=== PATIENT | male | born 1985 | race Caucasian/White ===

== ENCOUNTER 2017-08-24 21:28 | Inpatient (IN) | payer BC, OTHER ==
[~2017-08-24 21:28] MED LIST: ISOVUE-370 76%-LOCM 1 ML ONE
[2017-08-24 22:07] LABS: Hematocrit 26.9 % (42.0-52.0); Mean Platelet Volume 7.6 fL (7.4-10.4); Red Blood Cell (RBC) Count 3.05 mill/uL (4.70-6.10); White Blood Cell (WBC) Count 8.9 thou/uL (4.8-10.8)
[2017-08-24 22:21] LABS: Anion Gap 20 mmol/L (10-20); BUN (Urea Nitrogen) 18 mg/dL (8.9-20.6); Calc. Creatinine Clearance 0 mL/min (70-130); Calcium 9.3 mg/dL (7.8-10.44); Carbon Dioxide 20 mmol/L (22-29); Chloride 105 mmol/L (98-107); Estimated GFR-MDRD 55
[2017-08-24 22:23] LABS: Band 3 % (5-11); Neutrophil 69 % (42-75)
[2017-08-24 22:27] LABS: Troponin I 0.012 ng/mL (< 0.028)
--- NOTE | 2017-08-24 22:54 | CT ---
CT ANGIO CHEST WITH CONTRAST: History: Dyspnea. On chemotherapy. Leukemia. Comparison: None. FINDINGS: CT angiogram of the chest was performed after the intravenous administration of contrast. 3D renderin g provided. There is a small pericardial effusion. Phase of contrast limits evaluation for distal pulmonary embol i. No proximal segmental pulmonary arterial filling defect is present. Thyroid is unremarkable. There are abnormal airspace opacities throughout the right middle lobe, righ t lower lobe, and left lower lobe with subpleural sparing. Upper abdomen is unremarkable. The adrenal glands, pancreas, and spleen are unremarkable as well as the liver. The skeleton is unremarkable. There is a radiopacity adjacent to the right humeral head uncertain in nature. IMPRESSION: 1. No proximal segmental pulmonary arterial filling defect. 2. Multifocal lower lobe pneumonia. 3. Small to moderate sized pericardial effusion. POS: [facility]
[2017-08-24 23:43] LABS: Lactic Acid - Sepsis 2.9 mmol/L (0.5-2.2)
[2017-08-24] MEDS ORDERED: Piperacillin/Tazobactam 3.375 GM in Sodium Chloride 0.9% 100 ML IVPB SCH (23:45)
[2017-08-25] MEDS ORDERED: Ondansetron HCl/PF 4 MG/2 ML Vial IVP PRN (02:15)
[2017-08-25] MEDS ORDERED: Ondansetron ODT 4 MG TAB SL PRN (02:15)
[2017-08-25] MEDS ORDERED: Acetaminophen 325 MG TAB PO PRN (02:15)
[2017-08-25] MEDS ORDERED: Sodium Chloride 0.9% 1,000 ML IV SCH (02:15)
[2017-08-25] MEDS ORDERED: VANCOMYCIN IVPB PRN (02:51)
[2017-08-25 03:07] LABS: Hematocrit 24.9 % (42.0-52.0); Mean Platelet Volume 7.5 fL (7.4-10.4); Red Blood Cell (RBC) Count 2.81 mill/uL (4.70-6.10)
[2017-08-25 03:30] LABS: ALT (SGPT) 51 U/L (8-55); AST (SGOT) 45 U/L (5-34); Alkaline Phosphatase 59 U/L (40-150); Anion Gap 13 mmol/L (10-20); BUN (Urea Nitrogen) 15 mg/dL (8.9-20.6); Bilirubin, Total 0.4 mg/dL (0.2-1.2); Calc. Creatinine Clearance 115 mL/min (70-130); Calcium 8.8 mg/dL (7.8-10.44); Carbon Dioxide 24 mmol/L (22-29); Chloride 107 mmol/L (98-107); Estimated GFR-MDRD 63; Protein, Total 5.6 g/dL (6.0-8.3)
[2017-08-25 03:39] LABS: Band 7 % (5-11); Myelocyte 1 % (0-0); Neutrophil 58 % (42-75)
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
[2017-08-25] MEDS: Piperacillin/Tazobactam 3.375 GM in Sodium Chloride 0.9% 100 ML IVPB SCH ×3 (06:01→18:26)
[2017-08-25] MEDS ORDERED: RUXOLITINIB PHOSPHATE PO SCH ×2 (09:00)
[2017-08-25] MEDS ORDERED: POSACONAZOLE PO SCH (09:00)
[2017-08-25] MEDS ORDERED: MAGNESIUM AMINO ACID CHELATE PO SCH (09:00)
[2017-08-25] MEDS ORDERED: VALACYCLOVIR HCL PO SCH (09:00)
[2017-08-25] MEDS ORDERED: Potassium Chloride 20 MEQ TAB PO SCH (09:00)
[2017-08-25] MEDS ORDERED: PANTOPRAZOLE SODIUM PO SCH (09:00)
[2017-08-25] MEDS ORDERED: POTASSIUM CHLORIDE PO SCH (09:00)
[2017-08-25] MEDS: Vancomycin HCl 1.5 GM in Sodium Chloride 0.9% 250 ML 300 ML IVPB SCH ×2 (09:43→20:46)
[2017-08-25] MEDS: Pregabalin 75 MG CAP PO SCH ×2 (09:45→20:44)
[2017-08-25] MEDS ORDERED: Lidocaine 1% (PF) 30 ML VIAL ONE ×2 (10:29→10:37)
[2017-08-25] MEDS ORDERED: Fentanyl 100 MCG/2 ML VIAL ONE ×2 (10:37→11:34)
[2017-08-25] MEDS ORDERED: Midazolam HCl 2 mg/2 ml Vial ONE ×2 (10:37→11:34)
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
[2017-08-25 12:58] LABS: BF Reference Range Comment Note:
[2017-08-25] MEDS ORDERED: Vancomycin HCl 1 GM in Premix Bag 1 BAG IVPB SCH (13:00)
[2017-08-25 13:53] LABS: BF Color Pink
[2017-08-25 13:54] LABS: RBC Count-Automated 193000 /cumm
[2017-08-25 13:56] LABS: BF WBC/Nonhematics Ct. - Manua 90 /cumm
[2017-08-25] MEDS: Potassium Chloride 20 MEQ TAB PO SCH ×2 (14:42→17:14)
[2017-08-25 14:52] LABS: Number Cells Counted-Fluids 100
--- NOTE | 2017-08-25 15:10 | OP ---
DATE OF SERVICE: 08/25/2017 SERVICE: Pulmonary Medicine. PROCEDURES: Fiberoptic bronchoscopy with; 1. Visual airway inspection. 2. Endobronchial brush of the right lower lobe. 3. Bronchioalveolar lavage of the right lower lobe. 4. Transbronchial biopsies of right lower lobe. CONSCIOUS SEDATION: Administered by the physician PREPROCEDURE DIAGNOSES: 1. Immunocompromised state. 2. Pulmonary infiltrate. POSTPROCEDURE DIAGNOSES: 1. Immunocompromised state. 2. Pulmonary infiltrate. PROCEDURE PRODUCTION MINER: Rex Akins M.D. MEDICATIONS USED: 1. Versed 4 mg IV push. 2. Fentanyl 100 mcg IV push. 3. Topical Lidocaine, 1% without epinephrine, total quantity 18 mL. PREANESTHESIA ASSESSMENT: H&P had been performed. The patient's medications and allergies were reviewed. Informed consent was obtained after discussing risks, benefits, and rationale for performing the procedure as well as alternative options. DESCRIPTION OF PROCEDURE: A timeout was performed, identifying the correct procedure and the patient with name and date of . Topical anesthesia was applied to the nose and posterior oropharynx. A diagnostic fiberoptic bronchoscope was introduced through the right naris. The vocal cords were visualized and 1% lidocaine was topically sprayed on the cords. The bronchoscope was advanced into the trachea were additional aliquots of lidocaine were applied. A tracheobronchial tree inspection was carried out with clear identification of the right upper lobe, right middle lobe, right lower lobe, left upper lobe, lingula, and left lower lobe. Anatomy was normal to the segmental level. The bronchioalveolar lavage was obtained from the right lower lobe. Endobronchial brushings and transbronchial biopsies were subsequently obtained under fluoroscopic guidance. Hemostasis was verified and bronchoscope was subsequently removed from the patient. Post-procedure fluoroscopy did not demonstrate any pneumothorax. FINDINGS: 1. Vocal cords were normal in motility in appearance. 2. No discrete endobronchial disease was identified though the mucosa was diffusely friable. 3. Secretions were minimal, but slightly tenacious. Whatever was present was perfectly clear. SPECIMENS OBTAINED: 1. Pathology on BAL, brushings, and transbronchial biopsies. 2. Extended microbiology for immunocompromised host on BAL fluid. COMPLICATIONS: None. ESTIMATED BLOOD LOSS: 1 mL. FLUOROSCOPY TIME: Less than 2 midnights. DISPOSITION: The patient will return to his medical unit after he meets criteria in the postanesthesia care unit. [facility]
[2017-08-25] MEDS: MAGNESIUM AMINO ACID CHELATE PO SCH ×2 (17:18→20:45)
[2017-08-25] MEDS: POSACONAZOLE 100 MG PO SCH (17:19)
[2017-08-25] MEDS: Acetaminophen 325 MG TAB PO PRN (20:44)
[2017-08-26] MEDS: Piperacillin/Tazobactam 3.375 GM in Sodium Chloride 0.9% 100 ML IVPB SCH ×5 (00:34→23:49)
[2017-08-26] MEDS: Acetaminophen 325 MG TAB PO PRN (04:55)
[2017-08-26 05:22] LABS: %Eosinophils 0.5 % (0.0-10.0); %Lymphocytes 15.9 % (21.0-51.0); Hematocrit 23.3 % (42.0-52.0); Mean Platelet Volume 7.9 fL (7.4-10.4); Red Blood Cell (RBC) Count 2.63 mill/uL (4.70-6.10); White Blood Cell (WBC) Count 5.9 thou/uL (4.8-10.8)
[2017-08-26 05:23] LABS: #Lymphocytes 0.9 thou/uL (1.20-3.40); #Monocytes 0.8 thou/uL (0.11-0.59); #Neutrophils 4.1 thou/uL (1.40-6.50); %Basophils 0.2 % (0.0-1.0)
[2017-08-26 05:26] LABS: ALT (SGPT) 46 U/L (8-55); AST (SGOT) 45 U/L (5-34); Alkaline Phosphatase 59 U/L (40-150); Anion Gap 11 mmol/L (10-20); BUN (Urea Nitrogen) 12 mg/dL (8.9-20.6); Bilirubin, Total 0.3 mg/dL (0.2-1.2); Calc. Creatinine Clearance 155 mL/min (70-130); Calcium 8.3 mg/dL (7.8-10.44); Carbon Dioxide 23 mmol/L (22-29); Chloride 111 mmol/L (98-107); Estimated GFR-MDRD 89; Globulin 2.3 g/dL (2.4-3.5); Protein, Total 5.4 g/dL (6.0-8.3)
--- NOTE | 2017-08-26 06:51 | PDOC.FM ---
- Subjective Subjective: Fevered to 101.5F overnight. Denied shortness of breath this morning or overnight. No complaints this morning. - Objective MAR Reviewed: Yes Vital Signs & Weight: Vital Signs (12 hours) Temp Pulse Resp BP BP Pulse Ox 08/26/17 04:55 95 08/26/17 04:00 100.5 F H 102 H 18 108/50 L 95 08/26/17 00:35 92 L 08/26/17 00:00 99.6 F 103 H 20 110/51 L 92 L 08/25/17 20:40 101.5 F H 117 H 20 92 L 08/25/17 19:30 101.5 F H 117 H 20 110/56 L 92 L I&O: 08/24/17 08/25/17 08/26/17 06:59 06:59 06:59 Intake Total 1477 Output Total 375 Balance 1102 Result Diagrams: 08/26/17 04:58 08/26/17 04:58 Phys Exam - Physical Examination Constitutional: NAD HEENT: PERRLA, moist MMs Respiratory: no wheezing crackles in the right lung base Cardiovascular: RRR, no significant murmur Gastrointestinal: soft, non-tender, no distention, positive bowel sounds Musculoskeletal: edema present (bilateral lower extremities nonpitting to mid read) Neurological: non-focal Psychiatric: normal affect, A&O x 3 Dx/Plan (1) Sepsis due to pneumonia Code(s): J18.9 - PNEUMONIA, UNSPECIFIED ORGANISM; A41.9 - SEPSIS, UNSPECIFIED ORGANISM Status: Acute (2) Community acquired pneumonia Code(s): J18.9 - PNEUMONIA, UNSPECIFIED ORGANISM Status: Acute (3) LY (acute kidney injury) Code(s): N17.9 - ACUTE KIDNEY FAILURE, UNSPECIFIED Status: Acute (4) Lactic acidosis Code(s): E87.2 - ACIDOSIS Status: Acute (5) Peripheral edema Code(s): R60.9 - EDEMA, UNSPECIFIED Status: Acute (6) Hx of bone marrow transplant Code(s): Z94.81 - BONE MARROW TRANSPLANT STATUS Status: Acute (7) AML (acute myeloid leukemia) in remission Code(s): C92.01 - ACUTE MYELOBLASTIC LEUKEMIA, IN REMISSION Status: Acute (8) Immunosuppressed due to chemotherapy Code(s): Z79.899 - OTHER SKILLED NURSING (CURRENT) DRUG THERAPY Status: Acute (9) HTN (hypertension) Code(s): I10 - ESSENTIAL (PRIMARY) HYPERTENSION Status: Acute (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 1.)Sepsis 2/2 Multifocal pneumonia in an immunosuppressed pt- -Febrile, tachycardic CTA of thorax-negative for pulmonary embolus, positive for right middle and lower lobe and left lower lobe pna; Dr. Cain, pt's oncologist notified ([phone] or [email or web address]). Repeat CXR this am showed persistent right multifocal density Dr. Akins consulted; pt is s/p BAL, pending results, gram stain showed few wbc 's and no bacteria; respiratory culture is growing staphylococcus, no species listed yet Dr. Vlaerio consulted d/t pericardial effusion noted on CTA thorax; echo showed a mild effusion without s/s of tamponade. No intervention at this time. Pt is on Vanc and Zosyn empirically; Pt's bactrim was continued for PCP prophylaxis; Pt's Levaquin was restarted at a higher dose for dual antipsuedomonal coverage. All other meds per Dr. Cain were continued hx of funal pneumonia, pt is on posiconazole 2.)Peripheral edema 2/2 medication side effect- Pt is on amlodipine and nexavar, both of which can cause peripheral edema. Dr. Cain is aware of edema. Pt's amlodipine was held because of low normal blood pressures overnight. 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 Nexaval was discontinued 3 weeks ago and pt states his symptoms have resolved from the graft vs host disease after stopping this medicine. 5.)LY, resolved Continued lasix but will monitor renal function 6.)Lactic Acidosis, resolved 7.)HTN, controlled -held amlodipine this morning -Will monitor swelling.
[2017-08-26] MEDS ORDERED: predniSONE 20 MG TAB PO SCH ×2 (08:00→10:30)
[2017-08-26 08:41] LABS: Vancomycin, Trough 13.6 ug/mL
[2017-08-26] MEDS ORDERED: Albuterol Sulfate 2.5 mg/3 ml Neb NEB PRN (08:59)
[2017-08-26] MEDS ORDERED: predniSONE 5 MG TAB PO SCH (09:00)
[2017-08-26] MEDS ORDERED: Amlodipine 10 MG TAB PO SCH (09:00)
[2017-08-26] MEDS ORDERED: Sulfameth/Trimethoprim DS 800-160mg TAB PO SCH (09:00)
[2017-08-26] MEDS: Sulfameth/Trimethoprim DS 800-160mg TAB PO SCH (10:07)
[2017-08-26] MEDS: Potassium Chloride 20 MEQ TAB PO SCH (10:07)
[2017-08-26] MEDS: Pregabalin 75 MG CAP PO SCH ×2 (10:09→21:35)
[2017-08-26] MEDS: MAGNESIUM AMINO ACID CHELATE PO SCH ×2 (10:14→21:37)
[2017-08-26] MEDS: POSACONAZOLE 100 MG PO SCH ×2 (10:15→21:38)
--- NOTE | 2017-08-26 10:24 | RAD ---
PORTABLE CHEST: History: Sepsis. Comparison: 08-24-17 CT. FINDINGS: Heart size is borderline. The lungs show some minimal persist parenchymal change in the right lower l obe. Left lung appears clear but some of the minimal retrocardiac density seen on CT would be obscure d on a portable film. IMPRESSION: Minimal persistent infiltrate in the right lung base. POS: [facility]
[2017-08-26] MEDS: Vancomycin HCl 1.5 GM in Sodium Chloride 0.9% 250 ML 300 ML IVPB SCH ×3 (12:28→21:42)
[2017-08-26] MEDS ORDERED: Chlorhexidine Gluconate 15 ML UDCUP SSP PRN (13:23)
--- NOTE | 2017-08-26 13:29 | ADD-PRG ---
DATE OF SERVICE: 08/26/2017 Please add as an addendum to the note of Dr. Honey Ziegler Mr. Headley is resting quietly this morning in no distress. He was admitted with pneumonia. He is cu rrently on broad-spectrum antibiotics due to immunosuppression. 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 He is still running fever to 101.5. He has been evaluated also by Zafar Akins, who performed bronchoscopy with further studies pending. In the event, clinically he is in no distress and we will await result of bronchoscopy to expand our coverage if necessary.
--- NOTE | 2017-08-26 17:18 | PRG ---
DATE OF SERVICE: 08/26/2017 SERVICE: Pulmonary Medicine. INTERVAL HISTORY: The patient is breathing comfortably this morning. Yesterday evening, he felt nadia sy. He is coughing up increasing sputum. This was cleared. He did not have any significant hemopty sis. He had a low grade fever overnight. This morning, however, he is feeling much improved. He jimenez s no specific complaints of nausea, vomiting, or diarrhea. Otherwise, there has been no interval terry nges condition. We are waiting multiple laboratories come back from the bronchoscopy. PHYSICAL EXAMINATION: VITAL SIGNS: Afebrile, pulse 100, blood pressure 112/53, respirations 14, saturation 95% on room air . GENERAL: Patient is awake, alert, in no apparent distress. LUNGS: Excellent air entry. Dependent crackles with minimal. HEART: Normal rate, regular. ABDOMEN: Soft, nontender, nondistended. Bowel sounds positive. MUSCULOSKELETAL: No cyanosis or clubbing. There is 3+ pitting in the bilateral lower extremities. NEUROLOGIC: Grossly nonfocal. LABORATORY DATA: WBC 5.9, hemoglobin 7.9, platelets 201,000. Basic metabolic profile and liver func tion studies are unremarkable. Neutrophil count is 13% in the BAL fluid. Lymphocyte count is only 1 8%. Multiple special studies are currently pending. Respiratory culture is growing Staph species. This may be a contaminant from the nose. Acid fast bacilli and influenza are unremarkable. Blood cu ltures x2 are unremarkable. IMAGING: Chest x-ray demonstrates interval improvement in the infiltrate in the right lower lobe. C ytology demonstrates no malignancy. Benign respiratory epithelial cells are identified with rare aty pical cells, which likely represent degenerative atypia. Transbronchial biopsies demonstrate benign lung tissue with focal reactive changes and no evidence of fibrosis, granulomas or malignancies. ASSESSMENT: 1. Acute hypoxic respiratory failure. 2. Pulmonary infiltrate. 3. Immunocompromised state. 4. Obstructive sleep apnea, suspected. 5. Sepsis, improving. PLAN: We will await the results of the studies. I will send a urinalysis off to make certain he green s not have significant proteinuria. If positive, the nephrotic range proteinuria could cause his vol ume overload state. Pulmonary Critical Care will continue to follow up for the time being.
[2017-08-26 19:01] LABS: Bilirubin Negative (Negative); Blood, Urine Negative (Negative); Glucose, Urine (Dipstick) >=1000 mg/dL (Negative); Ketone, Urine Trace mg/dL (Negative); Nitrite Negative (Negative); Protein, Urine (Dipstick) Negative (Neg-Trace); Urobilinogen 0.2 mg/dL (0.2-1.0)
[2017-08-26 19:17] LABS: LegU Control Bar Appear? YES (CONTROL BAR); LegionellaU Control Bkground? CLEAR/WHITE (CLR/WHITE); Strp pneuU Control Background? CLEAR/WHITE (CLR/WHITE); Strp pneumo Control Bar Appear YES (CONTROL BAR)
[2017-08-26] MEDS ORDERED: Furosemide 20 MG TAB PO SCH (21:00)
[2017-08-26] MEDS: Ruxolitinib Phosphate [Jakafi] 10 MG PO SCH (21:41)
[2017-08-27 05:06] LABS: ALT (SGPT) 43 U/L (8-55); AST (SGOT) 40 U/L (5-34); Alkaline Phosphatase 60 U/L (40-150); Anion Gap 11 mmol/L (10-20); BUN (Urea Nitrogen) 11 mg/dL (8.9-20.6); Bilirubin, Total 0.3 mg/dL (0.2-1.2); Calc. Creatinine Clearance 152 mL/min (70-130); Calcium 8.5 mg/dL (7.8-10.44); Carbon Dioxide 23 mmol/L (22-29); Chloride 110 mmol/L (98-107); Estimated GFR-MDRD 87; Globulin 2.1 g/dL (2.4-3.5); Protein, Total 5.4 g/dL (6.0-8.3)
[2017-08-27 05:40] LABS: Anisocytosis SLIGHT = 6-15 cells (100X) (0-5/hpf); Band 1 % (5-11); Hematocrit 22.7 % (42.0-52.0); Mean Platelet Volume 7.7 fL (7.4-10.4); Neutrophil 77 % (42-75); Red Blood Cell (RBC) Count 2.53 mill/uL (4.70-6.10); Schistocytes SLIGHT = 2-5 cells (100X) (0-1/hpf)
[2017-08-27] MEDS: Ruxolitinib Phosphate [Jakafi] 10 MG PO SCH (06:12)
[2017-08-27] MEDS: Piperacillin/Tazobactam 3.375 GM in Sodium Chloride 0.9% 100 ML IVPB SCH ×4 (06:12→23:57)
--- NOTE | 2017-08-27 06:48 | PDOC.FM ---
- Objective Vital Signs & Weight: Vital Signs (12 hours) Temp Pulse Resp BP Pulse Ox 08/27/17 04:00 98.0 F 103 H 20 96/48 L 91 L 08/26/17 23:05 107 H 18 93 L 08/26/17 20:00 98.7 F 107 H 18 110/54 L 93 L 08/26/17 18:48 110 H 18 95 I&O: 08/25/17 08/26/17 08/27/17 06:59 06:59 06:59 Intake Total 1477 1250 Output Total 375 600 Balance 1102 650 Result Diagrams: 08/27/17 04:21 08/27/17 04:21 Dx/Plan (1) Sepsis due to pneumonia Code(s): J18.9 - PNEUMONIA, UNSPECIFIED ORGANISM; A41.9 - SEPSIS, UNSPECIFIED ORGANISM Status: Acute (2) Community acquired pneumonia Code(s): J18.9 - PNEUMONIA, UNSPECIFIED ORGANISM Status: Acute (3) LY (acute kidney injury) Code(s): N17.9 - ACUTE KIDNEY FAILURE, UNSPECIFIED Status: Acute (4) Lactic acidosis Code(s): E87.2 - ACIDOSIS Status: Acute (5) Peripheral edema Code(s): R60.9 - EDEMA, UNSPECIFIED Status: Acute (6) Hx of bone marrow transplant Code(s): Z94.81 - BONE MARROW TRANSPLANT STATUS Status: Acute (7) AML (acute myeloid leukemia) in remission Code(s): C92.01 - ACUTE MYELOBLASTIC LEUKEMIA, IN REMISSION Status: Acute (8) Immunosuppressed due to chemotherapy Code(s): Z79.899 - OTHER AIRPORT PLANNER (CURRENT) DRUG THERAPY Status: Acute (9) HTN (hypertension) Code(s): I10 - ESSENTIAL (PRIMARY) HYPERTENSION Status: Acute (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
--- NOTE | 2017-08-27 06:52 | PDOC.FM ---
- Subjective Subjective: Afebrile overnight. Hypotensive this morning with tachycardia to the 110s. Complains of mild shortness of breath on RA and persistent lower extremity leg swelling. - Objective MAR Reviewed: Yes Vital Signs & Weight: Vital Signs (12 hours) Temp Pulse Resp BP Pulse Ox 08/27/17 04:00 98.0 F 103 H 20 96/48 L 91 L 08/26/17 23:05 107 H 18 93 L 08/26/17 20:00 98.7 F 107 H 18 110/54 L 93 L I&O: 08/25/17 08/26/17 08/27/17 06:59 06:59 06:59 Intake Total 1477 1250 Output Total 375 600 Balance 1102 650 Result Diagrams: 08/27/17 04:21 08/27/17 04:21 Phys Exam - Physical Examination Constitutional: NAD HEENT: PERRLA, moist MMs Neck: no nodes, no JVD, supple Respiratory: no wheezing, no rales, no rhonchi, clear to auscultation bilateral Cardiovascular: no significant murmur, no rub tachycardia Gastrointestinal: soft, non-tender, no distention, positive bowel sounds bilateral lower extremity shawna to the knee Neurological: non-focal Psychiatric: normal affect, A&O x 3 Skin: no rash Dx/Plan (1) Sepsis due to pneumonia Code(s): J18.9 - PNEUMONIA, UNSPECIFIED ORGANISM; A41.9 - SEPSIS, UNSPECIFIED ORGANISM Status: Acute (2) Community acquired pneumonia Code(s): J18.9 - PNEUMONIA, UNSPECIFIED ORGANISM Status: Acute (3) LY (acute kidney injury) Code(s): N17.9 - ACUTE KIDNEY FAILURE, UNSPECIFIED Status: Resolved (4) Lactic acidosis Code(s): E87.2 - ACIDOSIS Status: Resolved (5) Peripheral edema Code(s): R60.9 - EDEMA, UNSPECIFIED Status: Chronic (6) Hx of bone marrow transplant Code(s): Z94.81 - BONE MARROW TRANSPLANT STATUS Status: Chronic (7) AML (acute myeloid leukemia) in remission Code(s): C92.01 - ACUTE MYELOBLASTIC LEUKEMIA, IN REMISSION Status: Chronic (8) Immunosuppressed due to chemotherapy Code(s): Z79.899 - OTHER DETENTION (CURRENT) DRUG THERAPY Status: Chronic (9) HTN (hypertension) Code(s): I10 - ESSENTIAL (PRIMARY) HYPERTENSION Status: Chronic (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 1.)Sepsis 2/2 Multifocal pneumonia in an immunosuppressed pt, with hypotension and tachycardia, concern for septic shock this AM -hypotensive, tachycardic -Provided pt with a 500ml bolus of NS and maintenence NS @ 140cc/hr -Some concern this morning for tamponade based on hypotension and worsening tachycardia. A repeat EKG and CXR were ordered. Pending read. However Pt does not have JVD. Pt's hypotension was corrected with a 500ml bolus of fluids. Will continue to monitor. Antibiotic coverage: Pt is on Vanc and Zosyn empirically; Pt's bactrim was continued for PCP prophylaxis; Pt's Levaquin was restarted at a higher dose for dual antipsuedomonal coverage. hx of funal pneumonia, pt is on posiconazole 300mg daily Will consult ID for recommendations on management with antibiotics/antifungals. Additional tests: RVP ordered, pending; Flu negative urine antigen Legionella and urine strep pneumo negative. CTA of thorax-negative for pulmonary embolus, positive for right middle and lower lobe and left lower lobe pna; Dr. Cain, pt's oncologist notified ([phone] or [email or web address]). Pulm: Dr. Akins consulted; pt is s/p BAL, pending results, gram stain showed few wbc 's and no bacteria; respiratory culture is growing staphylococcus, no species listed yet Cards: Dr. Valerio consulted d/t pericardial effusion noted on CTA thorax; echo showed a mild effusion without s/s of tamponade at that time. See above. 2.)Anemia: downtrending H and H. Pt without bloody stools. States his H/H downtrends while on the Jakafi. Decreased the Jakafi dosing per Dr. Cain. Will order an FOBT. 3.)Hypotension, tachycardia, no JVD Repeat EKG and CXR with concern for Cardiac tamponade Provided a 500ml bolus of NS and started pt on maintenance fluids at 140cc/hr of NS 2.)Peripheral edema 2/2 medication side effect- Pt thinks this is due to the Jakafi. Amlodipine has been held as pt has been hypotensive. 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 Pt's Levaquin was increased to 750mg daily. Nexaval was discontinued 3 weeks ago and pt states his symptoms have resolved from the graft vs host disease after stopping this medicine. 5.)LY, resolved held lasix due to hypotension. But will monitor renal function. 6.)Lactic Acidosis, resolved 7.)HTN, controlled -held amlodipine this morning -Will monitor swelling.
[2017-08-27 07:42] LABS: Hemoglobin A1c 4.7 % (4.0-6.0)
[2017-08-27 08:09] LABS: Vancomycin, Trough 16.6 ug/mL
[2017-08-27] MEDS: Sodium Chloride 0.9% 1,000 ML IV SCH ×4 (08:25→20:59)
[2017-08-27] MEDS: Pregabalin 75 MG CAP PO SCH ×2 (10:16→20:13)
[2017-08-27] MEDS: predniSONE 20 MG TAB PO SCH (10:17)
[2017-08-27] MEDS: Sulfameth/Trimethoprim DS 800-160mg TAB PO SCH (10:17)
[2017-08-27] MEDS: Potassium Chloride 20 MEQ TAB PO SCH (10:17)
[2017-08-27] MEDS: Vancomycin HCl 1.5 GM in Sodium Chloride 0.9% 250 ML 300 ML IVPB SCH ×2 (10:20→20:13)
[2017-08-27] MEDS: MAGNESIUM AMINO ACID CHELATE PO SCH (10:21)
[2017-08-27] MEDS: POSACONAZOLE 100 MG PO SCH (10:23)
[2017-08-27] MEDS: Furosemide 20 MG TAB PO SCH ×2 (10:33→14:22)
[2017-08-27 12:23] LABS: Magnesium 2.3 mg/dL (1.6-2.6); Phosphorus 4.9 mg/dL (2.3-4.7)
[2017-08-27 13:07] LABS: Fibrinogen 478 mg/dL (253-463)
[2017-08-27 13:08] LABS: Prothrombin Time 14.4 SEC (12.0-14.7)
--- NOTE | 2017-08-27 13:44 | RAD ---
CHEST 2 VIEWS: Date: 08/27/17 HISTORY: Pneumonia. Pericardial effusion. COMPARISON: None. FINDINGS: Normal cardiac silhouette. Pulmonary vessels and hilum are normal. No masses or consolidation. No pne umothorax. No osseous abnormalities. IMPRESSION: No acute cardiopulmonary process. POS: [facility]
--- NOTE | 2017-08-27 15:04 | ADD-PRG ---
DATE OF SERVICE: 08/27/2017 This is an addendum to the note of Dr. Honey Ziegler. Mr. Headley looks and feels better this morning. He did have an episode of hypotension which; however , responded very well to 500 mL bolus of normal saline. His blood pressure is currently 124/74. He still has some mild shortness of breath, but this is less so than previously and he is without a coug h. We are still awaiting multiple bronchial washings and biopsies as well as cultures and stains fro m Dr. Akins's bronchoscopy. Given Mr. Headely's immunocompromised state with a significant pneumoni a which however, he is improving, we will ask for input also from Infectious Disease, Dr. Crisostomo.
[2017-08-27] MEDS ORDERED: Enoxaparin Sodium 40 MG/0.4 ML SYRINGE SC SCH (15:45)
[2017-08-27] MEDS ORDERED: ISOVUE-370 76%-LOCM 1 ML ONE (15:53)
--- NOTE | 2017-08-27 17:03 | CT ---
CT ARTERIOGRAM CHEST WITH IV CONTRAST AND 3D MIP IMAGING: Date: 08/27/17 HISTORY: Tachycardia. Dyspnea. Chest pain. COMPARISON: 08/24/17. FINDINGS: There is good contrast opacification of the central pulmonary arteries and the thoracic aorta with jacob vine origin of the great vessels. Multifocal pneumonitis is similar in appearance to the previous exa m. Small amount of bilateral pleural fluid is now apparent with slight interval increase in pericardi al fluid. No evidence of pneumothorax. IMPRESSION: 1. No CT evidence of pulmonary embolus. 2. Interval development of small amount of bilateral pleural fluid with slight interval increase in pericardial fluid. Patchy bilateral pneumonitis is otherwise stable. POS: [facility]
[2017-08-27] MEDS ORDERED: Furosemide 40 MG TAB PO SCH (19:15)
[2017-08-27] MEDS ORDERED: Potassium Chloride 20 MEQ TAB PO SCH (19:15)
--- NOTE | 2017-08-27 20:59 | PRG ---
DATE OF SERVICE: 08/27/2017 SERVICE: Pulmonary Medicine. INTERVAL HISTORY: The patient is doing fine from cardiovascular and respiratory standpoint. This mo rning, he was essentially feeling the same. He had slightly increased tachycardia. He also had may inal blood pressures because of aggressive diuretics. He subsequently went for repeat CTA of the [address]. There is really not much of an interval change, although he now has bilateral pleural effusions, which are quite small. He denies any current nausea, vomiting. His cough is improving. His shortn ess of breath when he gets around is slightly better, but roughly stable. PHYSICAL EXAMINATION: VITAL SIGNS: Afebrile, pulse 105, blood pressure 109/50, respirations 16, saturation 97% on room air . GENERAL: Patient is awake, alert, no apparent distress. LUNGS: Decreased air entry. Crackles are present. There are some rhonchi on the right, but they cl ear with cough. HEART: Normal rate, regular. ABDOMEN: Soft, nontender, nondistended. Bowel sounds positive. MUSCULOSKELETAL: No cyanosis or clubbing. There are 2-3+ pitting in the bilateral lower extremities . NEUROLOGIC: Grossly nonfocal. LABORATORY DATA: WBC 4.0, hemoglobin 7.3, platelets 198,000. D-dimer 3.25. INR 1.1. Basic metabol ic profile is unremarkable except for potassium of 3.4 which has already been replaced. Magnesium an d phosphorus are unremarkable. Liver function studies are nearly normal. The BAL has predominantly macrophages. There are a couple neutrophils and lymphocytes there as well. There is lot of red bloo d cells there, but this is likely secondary to his friable mucosa. He does not have an alveolar hemo rrhage syndrome. Betaglycan was negative. HSV 1 and 2 was negative. Cytomegalovirus PCR was negati ve. One additional study is currently pending. Respiratory viral PCR from the BAL fluid was unremar kable. Tomas De Castro analysis, blood cultures x4 negative. Blood cultures from the bronchial washing are alicia wing coag negative staph. IMAGING: CTA of the chest demonstrates no evidence of pulmonary embolism. He has a small pleural ef fusion which is bilateral. He also has changes consistent with minimal pneumonitis, which are stable . There has been interval increase in the size of pericardial fluid. Chest x-ray demonstrates no ac hoopa cardiopulmonary abnormality. ASSESSMENT: 1. Acute hypoxic respiratory failure. 2. Pulmonary infiltrate. 3. Immunocompromised state. 4. Obstructive sleep apnea, suspected. 5. Sepsis, resolving. PLAN: The pericardial effusion is getting larger. If his respiratory issues get worse and not kellen r, he may need a repeat ultrasound of the heart to make certain he is not developing tamponade physio logy. IV fluids have been interrupted. We can continue to diurese him as much as is tolerated. I w ill follow up the results of these cultures. There is a possibility that we are not dealing with an infectious etiology here, but that is a diagnosis of exclusion at this point. I appreciate Dr. Crisostomo ' input.
--- NOTE | 2017-08-27 23:43 | CON ---
DATE OF CONSULTATION: 08/27/2017 REASON FOR CONSULTATION: Pulmonary infiltrates in a setting of post-stem cell transplant and GVHD. 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 Patient has been on the usual prophylaxis for infectious complications including Bactrim, levofloxacin, posaconazole, and Valtrex as well as the kinase inhibitors, ruxolitinib and sorafenib. In addition to that the patient has been taken sirolimus and prednisone for management of the graft versus host disease. 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 When after his shift, he developed fairly rapid onset of severe or progressively worsening dyspnea, which eventually led him to be brought to the emergency room after they found his pulse oximetry in the low range. Patient had no fever or chills. His diarrhea has improved markedly since the GVHD has been better controlled. No vomiting. No headaches, visual symptoms, sore throat, odynophagia, dysphagia, no toothache, no back pain, no abdominal pain, no genitourinary symptoms, no joint symptoms. Since admission he has had a bronchoscopy, the bronchoalveolar lavage results and other results are discussed below. Patient has received broad spectrum coverage with Zosyn, vancomycin, and levofloxacin. He has received furosemide, continued with the other medications noted above. He is feeling better. Since admission, he is still a little bit of dyspnea on effort and other 10-point review of systems as above. PAST MEDICAL HISTORY: Includes acute myelogenous leukemia with a stem cell transplant at [facility]. 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 PAST SURGICAL HISTORY: As above plus hernia operation. ALLERGIES: None. MEDICATIONS: Medications have been listed above. FAMILY HISTORY: Prostate cancer. SOCIAL HISTORY: Never a smoker. 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 PHYSICAL EXAMINATION: GENERAL: Pleasant young man in no acute distress. SKIN: Shows a little bit of erythema in the left retroauricular region, which he ascribes to graft versus host disease. Previous skin rash was localized around the anterior chest, peripheral IV access. No Monreal catheter. No lymphadenopathy. HEENT: Ocular movements are conjugate. Sclerae white. Pupils are equal. Oral cavity normal. NECK: Supple. LUNGS: With symmetric breath sounds with very faint inspiratory crackles left base. HEART: S1, S2, regular rate. No S3 or S4, no murmurs. ABDOMEN: Soft. Not distended or tender. No ascites. No bladder distention or organomegaly. GENITOURINARY: Genital examination normal. EXTREMITIES: No joint inflammatory activity. Patient has 3+ edema in lower extremities. Pulses are 1+ in dorsalis pedis. He is able to move extremities equally. NEUROLOGIC: Cognitive function is perfectly intact. LABORATORY DATA: Thus far, we have initial white cell count, which was 8.9 and now is 4.0, hemoglobin 9.1, down to 7.3; MCV is 89, platelets 320 and 198, 69% neutrophils on arrival and now 77%, lymphocytes are 13 and now 10, eosinophils are 0.5, monocytes 14. INR was 1.1, FTP were abnormal. Sodium 141, potassium 3.3, creatinine 1.31 and 0.9, and glucose 89. Hemoglobin A1c 4.7, calcium 8.8, AST 45 and 40. Other liver profile findings are normal. Albumin 3.6 and 3.3, globulin 2.0. Urinalysis with glycosuria, but otherwise normal. The BAL lavage with 193,000 rbc's per mL and 90 wbc's per mL. Differential shows 13% neutrophils, 18% lymphocytes, the pathology review showed macrophages endothelial cells, histiocytic and mesothelial cells mostly. Vancomycin trough has been normal. Legionella Strep pneumonia was negative and [id number] assay was negative. There are some tests pending including virus PCR panel. Cultures, we have a negative AFB smear and coagulase negative staphylococcus, probably colonizer or contaminant. Influenza A and B negative. IMAGING: The CT scan of the chest showed no evidence of pulmonary embolism, multifocal pneumonitis or pulmonary infiltrates with multifocal nature still noted as previously small effusions. The pathology from the bronchoalveolar lavage specimen showed benign epithelial cells and rare atypical cells and surgical biopsy from the bronchoscopy with benign lung tissues and focal reactive changes. ASSESSMENT: Acute myelogenous leukemia stem cell transplant two years ago in remission with subsequent development of graft versus host disease, which has been managed with immunosuppression. He also has received various kinase inhibitors including ruxolitinib and other kinase inhibitors. Some of them had been associated with some side effects and had been transitioned to different ones. Now, he has developed diffuse pulmonary infiltrates with hypoxemia. DISCUSSION: Differential diagnosis includes the usual infectious causes associated with the immunosuppressed state in this kind of situation. Those appear to have been evaluated properly and there is no evidence of any of them thus far. Patient also had been on adequate prophylaxis for most of those causes. Next possibility would be a noninfectious cause of pulmonary infiltrates and a number of findings of interest including the predominance of red cells in the BAL, which might indicate a low grade diffuse alveolar hemorrhage phenomenon, which can be associated with various underlying processes such as for example low grade graft versus host disease in the lung tissue as well as the possibility of sirolimus induced pulmonary infiltrates. Patient acknowledges that he has been displaying toxic levels of sirolimus in the recent past. If the virus PCR panel was negative, then I would tend to think that he has a noninfectious etiology pulmonary infiltrates and concentrate on the above possibilities among others. YOSID
[2017-08-28 05:10] LABS: #Lymphocytes 0.7 thou/uL (1.20-3.40); #Monocytes 0.6 thou/uL (0.11-0.59); %Basophils 0.3 % (0.0-1.0); %Eosinophils 0.4 % (0.0-10.0); %Lymphocytes 13.4 % (21.0-51.0); %Monocytes 10.8 % (0.0-10.0); Hematocrit 25.9 % (42.0-52.0); Mean Platelet Volume 7.6 fL (7.4-10.4); Red Blood Cell (RBC) Count 2.86 mill/uL (4.70-6.10); White Blood Cell (WBC) Count 5.4 thou/uL (4.8-10.8)
[2017-08-28 05:26] LABS: ALT (SGPT) 48 U/L (8-55); AST (SGOT) 38 U/L (5-34); Alkaline Phosphatase 59 U/L (40-150); Anion Gap 14 mmol/L (10-20); BUN (Urea Nitrogen) 8 mg/dL (8.9-20.6); Bilirubin, Total 0.4 mg/dL (0.2-1.2); Calc. Creatinine Clearance 160 mL/min (70-130); Calcium 9.1 mg/dL (7.8-10.44); Carbon Dioxide 20 mmol/L (22-29); Chloride 112 mmol/L (98-107); Estimated GFR-MDRD 89; Globulin 2.3 g/dL (2.4-3.5)
[2017-08-28] MEDS: Piperacillin/Tazobactam 3.375 GM in Sodium Chloride 0.9% 100 ML IVPB SCH ×4 (06:36→17:32)
[2017-08-28 07:18] LABS: Magnesium 2.2 mg/dL (1.6-2.6); Phosphorus 3.9 mg/dL (2.3-4.7)
[2017-08-28] MEDS: Potassium Chloride 20 MEQ TAB PO SCH (08:42)
[2017-08-28] MEDS: SIROLIMUS PO SCH (08:42)
[2017-08-28] MEDS: Pregabalin 75 MG CAP PO SCH ×2 (08:42→20:56)
[2017-08-28] MEDS: JAKAFI 10 MG PO SCH (08:42)
[2017-08-28] MEDS: predniSONE 20 MG TAB PO SCH (08:43)
[2017-08-28] MEDS: Furosemide 20 MG TAB PO SCH ×2 (08:43→12:57)
[2017-08-28] MEDS: Enoxaparin Sodium 40 MG/0.4 ML SYRINGE SC SCH (08:43)
[2017-08-28] MEDS: POSACONAZOLE 100 MG PO SCH (08:45)
[2017-08-28] MEDS: Sulfameth/Trimethoprim DS 800-160mg TAB PO SCH (08:49)
[2017-08-28] MEDS ORDERED: SIROLIMUS 1 MG/ML PO SCH (09:00)
[2017-08-28] MEDS: Vancomycin HCl 1.5 GM in Sodium Chloride 0.9% 250 ML 300 ML IVPB SCH ×2 (10:24→20:55)
[2017-08-28] MEDS ORDERED: Potassium Chloride 20 MEQ TAB PO SCH (13:45)
--- NOTE | 2017-08-28 13:47 | PDOC.FM ---
- Subjective Subjective: c/o fever blisters today in corners of mouth; VSS; afebrile - Objective Vital Signs & Weight: Vital Signs (12 hours) Temp Pulse Resp BP BP Pulse Ox 08/28/17 11:09 107 H 12 08/28/17 10:55 99.0 F 104 H 16 107/55 L 97 08/28/17 10:00 95 08/28/17 08:35 98.5 F 103 H 16 93 L 08/28/17 08:32 98.5 F 103 H 16 116/58 L 08/28/17 06:56 93 L 08/28/17 06:54 101 H 12 08/28/17 03:47 99.3 F 106 H 18 120/55 L 94 L Weight Weight 104.326 kg I&O: 08/27/17 08/28/17 08/29/17 06:59 06:59 06:59 Intake Total 1250 4470 Output Total 600 1950 Balance 650 2520 Result Diagrams: 08/28/17 04:43 08/28/17 04:42 Phys Exam - Physical Examination Constitutional: NAD HEENT: PERRLA, moist MMs (fever blisters bilaterally) mucosal fever blisters Respiratory: no rales, wheezing present (right lung upper lobe) Cardiovascular: no significant murmur tachycardia Gastrointestinal: soft, non-tender, no distention, positive bowel sounds Musculoskeletal: pulses present, edema present 2+ nonpitting b/l lower extremities Neurological: non-focal, normal sensation Psychiatric: normal affect, A&O x 3 Skin: no rash Dx/Plan (1) Sepsis due to pneumonia Code(s): J18.9 - PNEUMONIA, UNSPECIFIED ORGANISM; A41.9 - SEPSIS, UNSPECIFIED ORGANISM Status: Acute (2) Community acquired pneumonia Code(s): J18.9 - PNEUMONIA, UNSPECIFIED ORGANISM Status: Acute (3) LY (acute kidney injury) Code(s): N17.9 - ACUTE KIDNEY FAILURE, UNSPECIFIED Status: Resolved (4) Lactic acidosis Code(s): E87.2 - ACIDOSIS Status: Resolved (5) Peripheral edema Code(s): R60.9 - EDEMA, UNSPECIFIED Status: Chronic (6) Hx of bone marrow transplant Code(s): Z94.81 - BONE MARROW TRANSPLANT STATUS Status: Chronic (7) AML (acute myeloid leukemia) in remission Code(s): C92.01 - ACUTE MYELOBLASTIC LEUKEMIA, IN REMISSION Status: Chronic (8) Immunosuppressed due to chemotherapy Code(s): 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 hx of funal pneumonia, pt is on posiconazole 300mg daily Will consult ID for recommendations on management with antibiotics/antifungals. Additional tests: RVP ordered, pending; Flu negative urine antigen Legionella and urine strep pneumo negative. 3.)Pericardial effusion, stable -mild increase in size; pending recs from Dr. Valerio -Prior recs stating no intervention needed; will continue to monitor -EKG negative for electrical alternans -CXR was stable from prior -CTA chest was negative for a pulmonary embolus, showed a mild increase in effusion 4.)Anemia, improved H/H improved from day before. Pt without bloody stools. States his H/H downtrends while on the Jakafi. Decreased the Jakafi dosing per Dr. Cain. Will order an FOBT and iron studies. 5.)Hypotension, tachycardia, no JVD Repeat EKG and CXR did not show signs of worsening effusion 6.)Peripheral edema 2/2 medication side effect- Pt thinks this is due to the Jakafi. Amlodipine has been held as pt has been hypotensive. Pt provided with a dose of lasix yesterday. 7.)Hx of AML, s/p BMT Pt takes sacrolimus and jakafi d/t graft vs host disease; see below 8.)Graft Vs Host Disease, controlled, asymptomatic On sacrolimus and Jakafi on prednisone 5mg daily at home; increased to 100mg daily here for stress dosing On daily levaquin 500mg at home and bactrim MWF at home for PCP prophylaxis ( both continued during this hospital stay). Pt's Levaquin was increased to 750mg daily. Nexaval was discontinued 3 weeks ago and pt states his symptoms have resolved from the graft vs host disease after stopping this medicine. 9.)HTN, controlled -held amlodipine this morning -Will monitor swelling. Dispo: Likely transfer to [facility] today or tomorrow.
--- NOTE | 2017-08-28 13:48 | ADD-PRG ---
ADDENDUM To the note of Dr. Honey Ziegler. Mr. Headley is still having a slight drop in his blood pressure and increase in pulse rate. We did di scuss the case with the patient's oncologist and with Dr. Crisostomo. Dr. Crisostomo feels this may be a nonin fectious etiology for pneumonia. He feels that maybe graft versus host or a hypersensitivity pneumon itis related to the numerous medications. Mr. Headley takes his immunosuppressants for his AML and gr aft versus host disease. We will contact [facility] and transfer the patient according to his wishe s. Clinically, he remains stable, awake, alert, albeit with drops in blood pressure overnight.
[2017-08-28 14:59] LABS: Bilirubin, Direct 0.1 mg/dL (0.1-0.3)
[2017-08-28] MEDS: JAKAFI 5 MG PO SCH ×2 (16:31→21:01)
--- NOTE | 2017-08-28 16:33 | PRG ---
DATE OF SERVICE: 08/28/2017 SERVICE: Pulmonary Medicine. INTERVAL HISTORY: The patient is doing really well from a respiratory standpoint. This morning, he had a little heaviness in his chest. He took a nebulized medication and this improved. It typically happens first thing in the morning whenever is waking up, likely reflecting a little orthopnea. Oth erwise, he is making improvements on a day by day basis. He denies any current fevers, chills, nause a or vomiting. He is being looked for transition to [facility] at the beginning of next week. PHYSICAL EXAMINATION: VITAL SIGNS: Afebrile with a T-max of 99.0, pulse 104, blood pressure 107/55, respirations 16 and sa turation 97% on room air. GENERAL: Patient is awake and alert, in no apparent distress. LUNGS: Decent air entry. Dependent crackles are minimal. There are scattered rhonchi that clear wi th cough. HEART: Normal rate, regular resumes Tachycardic. Regular. ABDOMEN: Soft, nontender, nondistended. Bowel sounds positive. MUSCULOSKELETAL: No cyanosis or clubbing. He has got 2+ to 3+ pitting in the bilateral lower extrem ities, but this is actually more limited to the distal leg at this time. GENITOURINARY: No Monreal. LABORATORY DATA: WBC 5.4, hemoglobin 8.0, platelets 266,000 and stable. Creatinine 0.97, potassium 3.3. Iron is low, TIBC is normal. Direct bilirubin is normal. Liver function studies are otherwise unremarkable, essentially. On pathology, non-hematologic cells represented normal mesothelial cells . Vancomycin trough 16.6. All special stains and cultures are negative to date other than coag nega tive Staph growing in the BAL culture, which may represent a contaminant. As I went through the nose . Respiratory virus panel is unremarkable. ASSESSMENT: 1. Acute hypoxic respiratory failure, resolved. 2. Pulmonary infiltrate, small. 3. Immunocompromised state. 4. Obstructive sleep apnea, suspected. 5. Sepsis, resolving. PLAN: We will continue diuresing the patient until he returns to euvolemia. Once he gets out of the hospital, I would like from him to follow up with me in clinic so that we can arrange for him to und ergo a sleep study. Pulmonary will continue to follow while the patient remains in house.
[2017-08-29] MEDS: Piperacillin/Tazobactam 3.375 GM in Sodium Chloride 0.9% 100 ML IVPB SCH ×4 (02:25→20:22)
[2017-08-29 06:18] LABS: ALT (SGPT) 40 U/L (8-55); AST (SGOT) 29 U/L (5-34); Alkaline Phosphatase 56 U/L (40-150); Anion Gap 13 mmol/L (10-20); BUN (Urea Nitrogen) 12 mg/dL (8.9-20.6); Bilirubin, Total 0.3 mg/dL (0.2-1.2); Calc. Creatinine Clearance 154 mL/min (70-130); Calcium 8.9 mg/dL (7.8-10.44); Carbon Dioxide 24 mmol/L (22-29); Chloride 109 mmol/L (98-107); Estimated GFR-MDRD 85; Globulin 2.1 g/dL (2.4-3.5); Protein, Total 5.5 g/dL (6.0-8.3)
[2017-08-29 06:35] LABS: Band 2 % (5-11); Hematocrit 24.4 % (42.0-52.0); Mean Platelet Volume 7.6 fL (7.4-10.4); Neutrophil 57 % (42-75); Reactive Lymphocytes 1 % (0-10); Red Blood Cell (RBC) Count 2.74 mill/uL (4.70-6.10); White Blood Cell (WBC) Count 3.9 thou/uL (4.8-10.8)
--- NOTE | 2017-08-29 06:55 | PDOC.FM ---
- Subjective Subjective: Patient reports mildly improved LE swelling this morning. Also reports skin lesions around lips worsening and tongue swelling overnight. No SOB, no CP. - Objective MAR Reviewed: Yes Vital Signs & Weight: Vital Signs (12 hours) Temp Pulse Resp BP Pulse Ox 08/29/17 04:00 98.1 F 98 20 109/57 L 95 08/28/17 22:56 98 08/28/17 19:35 98.6 F 109 H 16 124/61 95 Weight Weight 104.326 kg I&O: 08/27/17 08/28/17 08/29/17 06:59 06:59 06:59 Intake Total 1250 4470 3365 Output Total 600 1950 3575 Balance 650 2520 -210 Result Diagrams: 08/29/17 05:33 08/29/17 05:33 Phys Exam - Physical Examination Constitutional: NAD HEENT: moist MMs, oral pharynx no lesions no obvious enlargement of tongue honey crusted lesions around oral mucosa Respiratory: no wheezing, no rales, clear to auscultation bilateral Cardiovascular: RRR, no significant murmur Gastrointestinal: soft, non-tender Musculoskeletal: edema present 2+ pitting edema Neurological: moves all 4 limbs Psychiatric: normal affect, A&O x 3 Dx/Plan (1) Community acquired pneumonia Code(s): J18.9 - PNEUMONIA, UNSPECIFIED ORGANISM Status: Acute (2) Sepsis due to pneumonia Code(s): J18.9 - PNEUMONIA, UNSPECIFIED ORGANISM; A41.9 - SEPSIS, UNSPECIFIED ORGANISM Status: Acute (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, history Status: Chronic (4) AML (acute myeloid leukemia) in remission Code(s): C92.01 - ACUTE MYELOBLASTIC LEUKEMIA, IN REMISSION Status: Chronic (5) Graft vs host disease Code(s): D89.813 - BAZAH-EZDXBS-PMMR DISEASE, UNSPECIFIED Status: Chronic (6) HTN (hypertension) Code(s): I10 - ESSENTIAL (PRIMARY) HYPERTENSION Status: Chronic (7) Hx of bone marrow transplant Code(s): Z94.81 - BONE MARROW TRANSPLANT STATUS Status: Chronic (8) Immunosuppressed due to chemotherapy 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 1.)Sepsis, resolved, 2/2 uncertain etiology, possibly infection vs medication side effect relating to sirolimus or jakafi -persistent tachycardia, improved -RR, wbc, and temp all wnl -hypotension resolved -blood cultures negative -Bronch: showed pink fluid, with concern for a hemorhagic process; fungal serology negative however lab requesting additional sample; negative for bacterial growth -RVP negative -Urine Legionella and urine strep pneumo antigen negative -Pt is on Vanc and Zosyn empirically; Pt's bactrim was continued for PCP prophylaxis; Pt's Levaquin was restarted at a higher dose for dual antipsuedomonal coverage. Will continue IV Abx one more night and d/c home with Levaquin 750mg. -hx of funal pneumonia, pt is on posiconazole 300mg daily Additional tests: RVP ordered, pending; Flu negative urine antigen Legionella and urine strep pneumo negative. 2.)Pericardial effusion, stable -Dr. Valerio recommends diuresis -Prior recs stating no intervention needed; will continue to monitor -EKG negative for electrical alternans -CXR was stable from prior -CTA chest was negative for a pulmonary embolus, showed a mild increase in effusion 4.)Anemia, stable H/H improved from day before. Pt without bloody stools. States his H/H downtrends while on the Jakafi. 6.)Peripheral edema 2/2 medication side effect- Pt thinks this is due to the Jakafi. Amlodipine has been held. 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 Pt's Levaquin was increased to 750mg daily. Nexaval was discontinued 3 weeks ago and pt states his symptoms have resolved from the graft vs host disease after stopping this medicine. -decreased Sacrolimus to 0.4mg today per Dr. Cain, patients oncologist 9.)HTN, controlled -held amlodipine this morning -Will monitor swelling. Dispo: Likely d/c home tomorrow with followup on in Dr. Cain's clinic.
[2017-08-29] MEDS ORDERED: predniSONE 50 MG TAB PO SCH (08:00)
[2017-08-29 08:51] LABS: Vancomycin, Trough 13.9 ug/mL
[2017-08-29] MEDS: Enoxaparin Sodium 40 MG/0.4 ML SYRINGE SC SCH (09:08)
[2017-08-29] MEDS: JAKAFI 10 MG PO SCH (09:13)
[2017-08-29] MEDS: Pregabalin 75 MG CAP PO SCH ×2 (09:14→20:53)
[2017-08-29] MEDS: predniSONE 5 MG TAB PO SCH (09:15)
[2017-08-29] MEDS: Potassium Chloride 20 MEQ TAB PO SCH ×2 (09:15→17:45)
[2017-08-29] MEDS: Furosemide 20 MG TAB PO SCH ×2 (09:16→14:48)
[2017-08-29] MEDS: Vancomycin HCl 1.5 GM in Sodium Chloride 0.9% 250 ML 300 ML IVPB SCH (09:24)
[2017-08-29] MEDS: SIROLIMUS PO SCH (09:24)
[2017-08-29] MEDS: POSACONAZOLE 100 MG PO SCH (09:28)
[2017-08-29] MEDS ORDERED: Cyanocobalamin 1000 MCG/ML VIAL IM SCH (11:00)
--- NOTE | 2017-08-29 14:24 | ADD-PRG ---
ADDENDUM: 08/29/2017 This is an addendum to the note of Dr. Winifred Torres. Mr. Headley looks and feels better this morning. He has some significant peripheral edema, but this seems to be improving with Lasix. There are stil l some ongoing discussion among ourselves and the specialists regarding the etiology of his "pneumoni a." Clinically, he is much improved and we will discharge him today or tomorrow for followup at [facility] next week.
[2017-08-29] MEDS: Mupirocin 2% Ointment 22 GM Tube TOP SCH ×2 (14:49→20:54)
[2017-08-29] MEDS ORDERED: Mupirocin 2% Ointment 22 GM Tube TOP SCH (15:00)
--- NOTE | 2017-08-29 20:48 | PRG ---
DATE OF SERVICE: 08/29/2017 Mr. Headley has no new complaints. He says he is slowly feeling better. Blood pressures have been fo r the most part stable over 100 systolic. He has had no hypotensive event, still has a mild resting tachycardia. He is afebrile. She still has significant lower extremity edema. Intake and output today is a negative 210 mL. He is not on a fluid restriction, but I have encourage d him not to drink a lot of liquids. He had close to a 1-quart size Big Gulp cup with water and lemo n in it at the bedside. His lungs are clear. Heart regular rhythm. He has concerns about his pericardial effusion. He is to follow up at [facility] on Thursday. I t hink it is reasonable to repeat his echocardiogram to make sure his effusions are not worse prior to discharge. His white count today is 3.9, hemoglobin 7.9, platelets are 242. His electrolytes are no rmal essentially except for potassium of 3. IMPRESSION: Status post stem cell transplantation with anasarca possibly secondary to medication or his pericardial effusion. We will reassess him tomorrow. Hopefully, he can be discharged soon to [place] ke his Thursday appointment at [facility].
[2017-08-29] MEDS: JAKAFI 5 MG PO SCH (20:52)
[2017-08-29] MEDS: Vancomycin HCl 1.75 GM in Sodium Chloride 0.9% 500 ML IVPB SCH (20:55)
[2017-08-30] MEDS: Piperacillin/Tazobactam 3.375 GM in Sodium Chloride 0.9% 100 ML IVPB SCH ×3 (02:00→15:54)
[2017-08-30 05:57] VITALS: BMI 27.7
[2017-08-30] MEDS ORDERED: JAKAFI 10 MG PO SCH (06:00)
[2017-08-30 06:24] LABS: Band 8 % (5-11); Mean Platelet Volume 7.5 fL (7.4-10.4); Neutrophil 71 % (42-75); Nucleated RBC 1 % (0); Red Blood Cell (RBC) Count 2.81 mill/uL (4.70-6.10); White Blood Cell (WBC) Count 4.2 thou/uL (4.8-10.8)
[2017-08-30 06:28] LABS: ALT (SGPT) 42 U/L (8-55); AST (SGOT) 41 U/L (5-34); Alkaline Phosphatase 60 U/L (40-150); Anion Gap 13 mmol/L (10-20); BUN (Urea Nitrogen) 13 mg/dL (8.9-20.6); Bilirubin, Total 0.3 mg/dL (0.2-1.2); Calc. Creatinine Clearance 117 mL/min (70-130); Calcium 8.9 mg/dL (7.8-10.44); Carbon Dioxide 24 mmol/L (22-29); Chloride 108 mmol/L (98-107); Estimated GFR-MDRD 65; Globulin 2.2 g/dL (2.4-3.5); Protein, Total 5.7 g/dL (6.0-8.3)
--- NOTE | 2017-08-30 06:53 | PDOC.FM ---
- Subjective Subjective: Patient is feeling well today. Denies CP and SOB. Reports oral lesions are steadily improving as well as LE edema. - Objective MAR Reviewed: Yes Vital Signs & Weight: Vital Signs (12 hours) Temp Pulse Resp BP Pulse Ox 08/30/17 04:00 98.4 F 95 16 109/55 L 94 L 08/29/17 22:30 90 16 99 08/29/17 19:20 98.7 F 98 16 117/63 97 Weight Weight 100.743 kg I&O: 08/28/17 08/29/17 08/30/17 06:59 06:59 06:59 Intake Total 4470 3365 2138 Output Total 6042 5635 4275 Balance 419 2136 Result Diagrams: 08/30/17 05:36 08/30/17 05:36 Phys Exam - Physical Examination Constitutional: NAD HEENT: moist MMs Respiratory: no wheezing, no rales, clear to auscultation bilateral Cardiovascular: RRR, no significant murmur Gastrointestinal: soft, non-tender 2+ edema b/l Neurological: moves all 4 limbs Psychiatric: A&O x 3 Skin: cap refill <2 seconds Dx/Plan (1) Community acquired pneumonia Code(s): J18.9 - PNEUMONIA, UNSPECIFIED ORGANISM Status: Acute (2) Sepsis due to pneumonia Code(s): J18.9 - PNEUMONIA, UNSPECIFIED ORGANISM; A41.9 - SEPSIS, UNSPECIFIED ORGANISM Status: Acute (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, history Status: Chronic (4) AML (acute myeloid leukemia) in remission Code(s): C92.01 - ACUTE MYELOBLASTIC LEUKEMIA, IN REMISSION Status: Chronic (5) Graft vs host disease Code(s): D89.813 - [id number] DISEASE, UNSPECIFIED Status: Ruled-out (6) HTN (hypertension) Code(s): I10 - ESSENTIAL (PRIMARY) HYPERTENSION Status: Chronic (7) Hx of bone marrow transplant Code(s): Z94.81 - BONE MARROW TRANSPLANT STATUS Status: Chronic (8) Immunosuppressed due to chemotherapy Code(s): Z79.899 - OTHER RESIDENTIAL (CURRENT) DRUG THERAPY Status: Chronic (9) Peripheral edema Code(s): R60.9 - EDEMA, UNSPECIFIED Status: Chronic (10) LY (acute kidney injury) Code(s): N17.9 - ACUTE KIDNEY FAILURE, UNSPECIFIED Status: Acute - Plan Plan: 32 yo man with pmhx of AML s/p BMT with hx of Graft vs Host dz, currently on immunosuppressive medication presents with shortness of breath and desaturations to the 80s, admitted for multi-focal pneumonia with hx of fungal pneumonia, without evidence on respiratory culture, bronch, rvp for infectious etiology, likely a hypersensitivity pneumonitis 2/2 sirolimus or jakafi vs other environmental trigger. 1.)Sepsis, resolved, 2/2 uncertain etiology, possibly infection vs medication side effect relating to sirolimus or jakafi -persistent tachycardia, improved -RR, wbc, and temp all wnl -hypotension resolved -blood cultures negative -Bronch: showed pink fluid, with concern for a hemorhagic process; fungal serology negative however lab requesting additional sample; negative for bacterial growth -RVP negative -Urine Legionella and urine strep pneumo antigen negative -Pt is on Vanc and Zosyn empirically; Pt's bactrim was continued for PCP prophylaxis; Pt's Levaquin was restarted at a higher dose for dual antipsuedomonal coverage. Will continue IV Abx one more night and d/c home with Levaquin 750mg. -hx of funal pneumonia, pt is on posiconazole 300mg daily Additional tests: RVP ordered, pending; Flu negative urine antigen Legionella and urine strep pneumo negative. 2.)Pericardial effusion, stable -Dr. Valerio recommends diuresis -Prior recs stating no intervention needed; will continue to monitor -EKG negative for electrical alternans -CXR was stable from prior -CTA chest was negative for a pulmonary embolus, showed a mild increase in effusion - repeat echo shows trivial stable pericardial effusion 4.)Anemia, stable H/H improved from day before. Pt without bloody stools. States his H/H downtrends while on the Jakafi. 6.)Peripheral edema 2/2 medication side effect- Pt thinks this is due to the Jakafi. Amlodipine has been held. 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 Pt's Levaquin was increased to 750mg daily. Nexaval was discontinued 3 weeks ago and pt states his symptoms have resolved from the graft vs host disease after stopping this medicine. -decreased Sacrolimus to 0.4mg today per Dr. Cain, patients oncologist 9.)HTN, controlled -held amlodipine this morning -Will monitor swelling. Hypokalemia - replace and recheck LY - likely due to Lasix, will reduce to 20mg BID and recheck kidney function Dispo: d/c today pending repeat BMP with f/u with Dr. Cain on
[2017-08-30] MEDS: Potassium Chloride 20 MEQ TAB PO SCH (07:42)
[2017-08-30] MEDS ORDERED: Potassium Chloride 20 MEQ TAB PO SCH (08:00)
[2017-08-30] MEDS: Enoxaparin Sodium 40 MG/0.4 ML SYRINGE SC SCH (09:00)
[2017-08-30] MEDS: Furosemide 20 MG TAB PO SCH ×2 (09:00→13:49)
[2017-08-30] MEDS: Mupirocin 2% Ointment 22 GM Tube TOP SCH ×2 (09:01→16:20)
[2017-08-30] MEDS: POSACONAZOLE 100 MG PO SCH (09:02)
[2017-08-30] MEDS: predniSONE 5 MG TAB PO SCH (09:04)
[2017-08-30] MEDS: Pregabalin 75 MG CAP PO SCH (09:04)
[2017-08-30] MEDS: Vancomycin HCl 1.75 GM in Sodium Chloride 0.9% 500 ML IVPB SCH (09:05)
[2017-08-30] MEDS: SIROLIMUS PO SCH (09:15)
--- NOTE | 2017-08-30 12:42 | PRG ---
DATE OF SERVICE: 08/30/2017 Mr. Headley looks and feels much better this morning. He is having no cough, no respiratory distress and no drops in his blood pressure. He is walking in the [place] without difficulty. He has arranged t o see his [facility] doctors on , he will be discharged later today.
[2017-08-30 13:59] LABS: ALT (SGPT) 45 U/L (8-55); AST (SGOT) 47 U/L (5-34); Alkaline Phosphatase 64 U/L (40-150); Anion Gap 12 mmol/L (10-20); BUN (Urea Nitrogen) 12 mg/dL (8.9-20.6); Bilirubin, Total 0.4 mg/dL (0.2-1.2); Calc. Creatinine Clearance 116 mL/min (70-130); Calcium 9.1 mg/dL (7.8-10.44); Carbon Dioxide 25 mmol/L (22-29); Chloride 109 mmol/L (98-107); Estimated GFR-MDRD 64; Globulin 2.4 g/dL (2.4-3.5); Protein, Total 6.1 g/dL (6.0-8.3)
--- NOTE | 2017-08-30 14:31 | PRG ---
DATE OF SERVICE: 08/30/2017 SUBJECTIVE: Mr. Headley says he is feeling better. Intake and output was negative 210 yesterday, negative 2136 today. The hospital doctor's have planned to discharge. His echocardiogram showed an almost negligible pericardial effusion. LABORATORY DATA: White count 4.2, hemoglobin 8.1, platelets 253. Sodium 142, potassium 3.6, chloride 109, bicarbonate 25, BUN 12, creatinine 1.29. IMPRESSION: Volume overload with pericardial effusion, is resolved. His volume overload is improving. FOLLOWUP: Follow up hopefully with MD Chong on Thursday. VIVIANE
[2017-08-30 16:50] VITALS: BP 132/66; TEMP 98.5
[2017-08-31 17:12] LABS: Folate,Hemolysate 316.8 ng/mL (Not Estab.); Hematocrit 24.8 % (37.5-51.0); RBC Folate Test Component 1277 ng/mL (>498)
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
--- NOTE | 2017-09-29 12:39 | EKG ---
Test Reason : Blood Pressure : / mmHG Vent. Rate : 109 BPM Atrial Rate : 109 BPM P-R Int : 122 ms QRS Dur : 082 ms QT Int : 344 ms P-R-T Axes : 028 013 039 degrees QTc Int : 463 ms Sinus tachycardia Low voltage QRS Borderline ECG Confirmed by TIFFANIE GARCIA ([id number]), content editor YARITZA HAMPTON ([id number]) on 09/29/2017 12:38:58 PM Referred By: CARMINA GARCIA Confirmed By:TIFFANIE GARCIA
== END 2017-08-30 17:11 | disposition home or self-care (01) | DRG 853 ==
LOC: ERS 21:28 → 2NO 08-25 00:40
PROVIDERS: ADMIT Student in an Organized Health Care Education/Training Program; ATTEND Student in an Organized Health Care Education/Training Program
PROC: 0BDF8ZX Extraction of Right Lower Lung Lobe, Via Natural or Artificial Opening Endoscopic, Diagnostic (ICD-10-PCS; principal; 2017-08-25)
PROC: 0B9F8ZX Drainage of Right Lower Lung Lobe, Via Natural or Artificial Opening Endoscopic, Diagnostic (ICD-10-PCS; 2017-08-25)
PROC: 0BJ08ZZ Inspection of Tracheobronchial Tree, Via Natural or Artificial Opening Endoscopic (ICD-10-PCS; 2017-08-25)
DX: A41.9 Sepsis, unspecified organism (principal); J18.9 Pneumonia, unspecified organism; J96.01 Acute respiratory failure with hypoxia; D89.813 Graft-versus-host disease, unspecified; D89.811 Chronic graft-versus-host disease; N17.9 Acute kidney failure, unspecified; J91.8 Pleural effusion in other conditions classified elsewhere; E87.2 Acidosis; C92.01 Acute myeloblastic leukemia, in remission; Z94.84 Stem cells transplant status; I31.3 Pericardial effusion (noninflammatory); R65.20 Severe sepsis without septic shock; I15.8 Other secondary hypertension; I08.1 Rheumatic disorders of both mitral and tricuspid valves; T45.1X5A Adverse effect of antineoplastic and immunosuppressive drugs, initial encounter; Z92.21 Personal history of antineoplastic chemotherapy; Z79.899 Other long term (current) drug therapy; R60.0 Localized edema; G47.33 Obstructive sleep apnea (adult) (pediatric); D64.9 Anemia, unspecified; K21.9 Gastro-esophageal reflux disease without esophagitis; E87.6 Hypokalemia
CPT/HCPCS: 36415; 71010; 71020; 71275; 76001; 80048; 80053; 80202; 81003; 82248; 82553; 82607; 82728; 82747; 83036; 83540; 83550; 83605; 83735; 83880; 84100; 84443; 84484; 85025; 85049; 85060; 85300; 85362; 85379; 85384; 85610; 85730; 87040; 87070; 87086; 87102; 87116; 87205; 87206; 87449; 87633; 87899; 88104; 88112; 88305; 88312; 89051; 93005; 93010; 93306; 94640; 96365; 96367; 99152; 99153; A4216; J1650; J1956; J2001; J2250; J2543; J3010; J3370; J3420; J7050; J7506; J7620